=== PATIENT | male | born 1970 | race Caucasian/White ===

== ENCOUNTER 2019-12-07 18:19 | Emergency (ER) | payer OTHER, SELFPAY ==
[2019-12-07] VITALS (9 sets, daily range): BP systolic 148–175; BP diastolic 10–122; PULSE 88–122; RESP 18–25; TEMP 37.4–38.1; O2SAT 95–100
--- NOTE | ~2019-12-07 | CT_ITS ---
EXAMINATION: CTA chest PE protocol DATE: 12/07/2019 19:53 INDICATION: Chest pain, cough and fever TECHNIQUE: Computed tomography (CT) pulmonary angiogram of the chest was performed with 100 mL Omnipa que-350 intravenous contrast. Additional 3D reconstructions utilizing coronal maximum intensity proje ction (MIP) were performed. Automated exposure control and iterative reconstruction technique were em ployed. The dose-length product was 983.14 mGy-cm. COMPARISON: None FINDINGS: Good contrast opacification of the pulmonary arteries. There is mild streak artifact from dense contr ast in the superior vena cava and right atrium. No significant motion artifact. No pulmonary embolism . There is a suture line at the left apex paralleling the first rib. No pneumonia, pulmonary edema or other pulmonary infiltrates. No pleural effusion or pneumothorax. Heart size is normal. No pericardi al effusion. Thoracic aorta is normal in caliber with no dissection. No pathologically enlarged thora cic lymphadenopathy. Small hiatal hernia. There is mild haziness to the fat surrounding multiple mild ly enlarged gastrohepatic lymph nodes the largest measuring 1.4 cm in maximal short axis diameter. Mi ld upper thoracic levocurvature with mild spondylosis. IMPRESSION: 1. No pulmonary embolism or other acute cardiopulmonary disease. 2. Nonspecific mild likely reactive gastrohepatic lymphadenopathy. 3. Small sliding-type hiatal hernia. Reviewed, dictated and finalized at location A.
--- NOTE | ~2019-12-07 | XR_ITS ---
EXAMINATION: XR chest 1V portable DATE: 12/07/2019 19:04 INDICATION: Shortness of breath. Difficult to breathing. Chest pain. TECHNIQUE: frontal view of the chest was obtained. COMPARISON: None FINDINGS: Mild left basilar opacities which could represent atelectasis or pneumonia. No pulmonary edema, pleur al effusion or pneumothorax. The cardiomediastinal silhouette is normal. Mild thoracic levocurvature with moderate spondylosis. IMPRESSION: 1. Mild left basilar atelectasis versus pneumonia. Reviewed, dictated and finalized at location A.
--- NOTE | 2019-12-07 18:23 | ECG_ITS ---
Measurements Intervals [place] Rate: 116 P: 18 CT: 157 QRS: 0 QRSD: 94 T: 5 QT: 299 QTc: 417 Interpretive Statements SINUS TACHYCARDIA BORDERLINE T WAVE ABNORMALITY- INFERIOR LEADS BASELINE ARTIFACT- II, III, AVR, V1-V3 ABNORMAL ECG Electronically Signed On 12-08-2019 7:18:38 CDT by Andi Pritchard D.O.
[2019-12-07] MEDS: ASPIRIN 81 MG CHEWABLE TABLET 324 MG PO (18:36)
[2019-12-07 18:38] LABS: Basophils Percent Auto 0.3 % (0.2-1.2); Eosinophils Absolute Auto 0.1 K/mm3 (0-0.3); Eosinophils Percent Auto 0.8 % (0-4.4); Hemoglobin 17.3 g/dL (14.0-18.0); Immature Granulocyte Absolute 0.01 K/mm3 (0.00-0.031); Immature Granulocyte Percent A 0.1 % (0-0.5); Lymphocytes Absolute Auto 0.87 K/mm3 (0.9-3.2); Mean Corpuscular HGB Conc 33.9 g/dl (32-36); Mean Corpuscular Volume 91.4 fl (80-100); Mean Platelet Volume 9.2 fl (7.4-10.4); Monocytes Absolute Auto 0.8 K/mm3 (0.1-0.6); Monocytes Percent Auto 9.7 % (2.6-8.5); Neutrophils Absolute Auto 6.9 K/mm3 (1.3-6.7); Neutrophils Percent Auto 79.1 % (45.5-73.1); Platelet Count Result 211 k/mm3 (150-375); Red Blood Count 5.58 M/mm3 (4.6-6.20); Red Cell Distribution Width 12.1 % (11.5-14.5); White Blood Count 8.7 K/mm3 (4.5-10.0)
[2019-12-07 18:45] LABS: Prothrombin Time 12.4 Seconds (11.1-14.7)
[2019-12-07 18:46] LABS: Partial Thromboplastin Time 25.5 SECONDS (22.3-36.8)
[2019-12-07 18:47] LABS: Blood Urea Nitrogen 11 mg/dL (9-20); Calcium 9.3 mg/dL (8.4-10.2); Carbon Dioxide 31 mmol/L (22-30); Chloride 101 mmol/L (98-107); Estimated CRCL calculation 86 ml/min; Estimated Glomerular Filt Rate > 60; Glucose 134 mg/dL (75-110); Potassium 4.1 mmol/L (3.4-5.0); Sodium 138 mmol/L (137-145)
--- NOTE | 2019-12-07 18:48 | PC.NURSE ---
Patient requesting to take mask off, advised we can't since he is sharing a room with another patient.
[2019-12-07 18:58] LABS: Troponin I < 0.012 ng/mL (0.000-0.034)
--- NOTE | 2019-12-07 19:13 | ED.CHESTPAIN ---
HPI - Chest Pain General Chief Complaint: Chest Pain Stated Complaint: signs of a heart attack Time Seen by Provider: 12/07/19 19:00 Source: RN notes reviewed History of Present Illness HPI narrative: Patient presents emergency department from home for chest pain and fatigue. Patient states symptoms began last night. He states he is had chest pain in the midsternal chest and does not radiate. States is been associated with fatigue shortness of breath and a cough that is been nonproductive. Patient denies any fevers at home but is noted to have a fever in the emergency department. He denies any abdominal pain vomiting or diarrhea. Related Data Home Medications Medication Instructions Recorded Confirmed albuterol sulfate [Ventolin HFA] 2 puff INHALATION PRN PRN 12/07/19 fluticasone propion-salmeterol 1 inh INHALATION Q12H 12/07/19 [Advair Diskus] levetiracetam [Keppra] 1,500 mg PO BID 12/07/19 lisinopril 10 mg PO DAILY 12/07/19 Allergies Allergy/AdvReac Type Severity Reaction Status Date / Time shellfish derived Allergy Anaphylaxis Verified 12/07/19 18:27 Review of Systems Review of Systems: Narrative: Gen.: Reports fever Eyes: Denies eye pain or visual change ENT: Denies congestion Respiratory: See HPI CV: Reports chest pain GI: Denies abdominal pain nausea, emesis or diarrhea Musculoskeletal: Denies back pain or muscle pain Neuro: Denies numbness, tingling, weakness or focal weakness Skin: Denies rash Except as documented, all other systems reviewed and negative PMFSH Past Medical History Medical History (Updated 12/08/19 @ 00:01 by Marco Bond DO) Brain tumor Seizures Social History Social History (Updated 12/07/19 @ 19:15 by Marco Bond DO) Smoking status: Never smoker Gender identity (if verbalized by the patient): Male Exam Narrative: Exam Narrative: APPEARANCE: No acute distress, nontoxic, resting in bed EYES: EOMI HEENT: Normocephalic, atraumatic, OMM RESPIRATORY: No respiratory distress Clear to auscultation bilaterally with no rhonchi wheezing or rales. CARDIOVASCULAR: Regular rate and rhythm without murmurs rubs or gallops. ABDOMINAL: Soft, nontender, nondistended, no rebound or guarding MUSCULOSKELETAl: Moves all extremities. No clubbing, cyanosis or edema. NEURO: Awake and alert. Following commands, speech normal, no focal deficits SKIN:: Warm, dry. No rashes lesions or abrasions PSYCHIATRIC: Normal affect/mood, Course Course Emergency Course: Patient is remained on cardiac monitors in ED no arrhythmias noted. Patient is remained on room air with oxygen saturations in the mid 90s. At this time the patient was tested for COVID with concern of COVID will discharge with self quarantine Discussed with patient results of workup and diagnosis. Discussed need for follow-up with primary care, proper use of medication, and reasons to return to the emergency department. Patient understands and agrees to current treatment plan patient states he does have an albuterol inhaler at home Patient does take lisinopril 10 mg at night. Offered his lisinopril in the ED states he will take his medication returns home Vital Signs Vital signs: Vital Signs Temperature 100.6 F H 12/07/19 18:23 Pulse Rate 121 H 12/07/19 18:23 Respiratory Rate 25 H 12/07/19 18:23 Blood Pressure 175/122 H 12/07/19 18:23 Pulse Oximetry 96 12/07/19 18:23 Temperature 99.3 F 12/07/19 20:53 Pulse Rate 89 12/07/19 23:23 Respiratory Rate 18 12/07/19 23:23 Blood Pressure 169/10 H 12/07/19 22:59 Pulse Oximetry 97 12/07/19 22:59 MDM - Chest Pain MDM Narrative Medical decision making narrative: Patient presents for fever midsternal chest pain and cough patient had normal EKG in ED with 2 negative troponins. CTA of the chest shows no signs of pulmonary embolism or other acute cardiopulmonary disease no signs of aneurysm. The patient is felt to be stable for discharge with self
[2019-12-07] MEDS: SODIUM CHLORIDE 0.9% IV 1,000 ML 999 ML IV CONT (19:23)
[2019-12-07 19:43] LABS: Alanine Aminotransferase 18 U/L (4-50); Albumin Level 4.4 g/dL (3.5-5.1); Alkaline Phosphatase 79 U/L (38-126); Aspartate Amino Transferase 26 U/L (17-59); Bilirubin,Total 1.3 mg/dL (0.2-1.3); Lipase 80 U/L (23-300)
[2019-12-07 19:54] LABS: Lactic Acid Reflex 1.7 mmol/L (0.7-2.1)
[2019-12-07 22:28] LABS: Troponin I < 0.012 ng/mL (0.000-0.034)
[2019-12-07] MEDS: ALBUTEROL SULFATE (*SP) AEROSOL 1 PUFF 2 PUFF INHALATION (23:22)
[2019-12-08] MEDS: FAMOTIDINE 20 MG TABLET PO (00:09)
[2019-12-08] MEDS: lisinopriL 10 MG TABLET PO (00:09)
[2019-12-08 00:12] VITALS: BP 157/99; PULSE 82; RESP 22; TEMP 37.2; O2SAT 96
[2019-12-08 09:48] LABS: SARS-CoV-2 RNA PCR Negative
== END 2019-12-08 00:13 | disposition home or self-care (01) ==
PROVIDERS: Emergency Medicine; Emergency Provider Emergency Medicine; PCP Family Medicine
DX: R07.89 Other chest pain (principal); Z20.828 Contact with and (suspected) exposure to other viral communicable diseases; R00.0 Tachycardia, unspecified; R94.31 Abnormal electrocardiogram [ECG] [EKG]
CPT/HCPCS: 36415; 71045; 71275; 80048; 80076; 83605; 83690; 84484; 85025; 85610; 85730; 87040; 87635; 93005; 96361; 96374; 99284; A9270; C9803; J0131; J7030; Q9967; U0003